=== PATIENT | female | born 1960 | race Caucasian/White ===

== ENCOUNTER 2025-04-03 07:36 | Day surgery (SDC) | payer OTHER, MEDICARE ==
[2025-04-02 14:07] VITALS: BMI 24.0
[2025-04-03] MEDS ORDERED: PROPOFOL 60 ML ONE (08:33)
[2025-04-03] MEDS ORDERED: LIDOCAINE 1%/EPI 1:100000 (20 ML MULTI DOSE VIAL) ONE (09:44)
[2025-04-03] MEDS ORDERED: POVIDONE-IODINE 5% OPHTHALMIC PREP 30 ML SOLUTION ONE (09:44)
[2025-04-03] MEDS ORDERED: TETRACAINE 0.5% OPHTH SOLN 2 ML BOTTLE ONE (09:44)
[2025-04-03] MEDS ORDERED: ERYTHROMYCIN 0.5% OPHTHALMIC OINTMENT 3.5 GM TUBE ONE (09:44)
[2025-04-03] MEDS ORDERED: BUPIVACAINE HCL/PF 0.5% (5MG/ML) 10 ML VIAL ONE (09:44)
[2025-04-03] MEDS ORDERED: LACTATED RINGERS SOLUTION 1,000 ML IV SCH (09:45)
[2025-04-03] MEDS ORDERED: PROPOFOL 20 ML ONE ×2 (10:29→11:30)
[2025-04-03] MEDS ORDERED: ACETAMINOPHEN INJECTION 100 ML ONE (12:11)
[2025-04-03] MEDS: ACETAMINOPHEN 1000 MG/100 ML BAG IVPB ONE (12:23)
[2025-04-03] MEDS ORDERED: FENTANYL CITRATE/PF 50 MCG/ML VIAL ONE ×2 (12:25→12:37)
[2025-04-03 14:13] VITALS: RESP 18; TEMP 98
[2025-04-03 14:16] VITALS: BP 122/72; PULSE 73
== END 2025-04-03 14:00 | disposition home or self-care (01) ==
LOC: FASU 07:36
PROVIDERS: ATTEND Ophthalmology
PROC: 080N0ZZ Alteration of Right Upper Eyelid, Open Approach (ICD-10-PCS; 2025-04-03)
PROC: 080P0ZZ Alteration of Left Upper Eyelid, Open Approach (ICD-10-PCS; principal; 2025-04-03 10:43)
DX: H02.834 Dermatochalasis of left upper eyelid (principal); H02.831 Dermatochalasis of right upper eyelid
CPT/HCPCS: 94760